=== PATIENT | female | born 1990 | race African-American/Black ===

== ENCOUNTER 2023-08-20 08:40 | Emergency (ER) | payer BC, SELFPAY ==
--- NOTE | 2023-08-20 09:40 | ED.GENMED ---
History of Present Illness
General
Chief Complaint: Anal/Rectal Problem
Time Seen by Provider: 08/20/23 09:17
Travel History
Have you had any contact with someone who has COVID-19?: No
Do you have any symptoms of coronavirus? Fever > 100 degrees, chills, cough, shortness of breath, sore throat, loss of taste or smell, muscle aches, or headache?: No
History of Present Illness
History of Present Illness:
33-year-old previously healthy female presents to the emergency department for evaluation of rectal pain that has been ongoing for the past 4 days. Began after having a large bowel movement. Pain increases with any sitting. Denies any anal
insertive intercourse. Denies any associated fevers or chills. No discharge in the rectum.
Review of Systems
Review of Systems
Allergies reviewed?: Yes
All Other Systems: ROS reviewed and negative except as documented in HPI and ROS
Phy Exam
Physical Exam
Physical Exam:
GEN: Well appearing, NAD, WDWN
HEENT: Oral mucosa moist, no scleral icterus
Cardiac: Regular rate
Lung: No respiratory distress, no tachypnea
Rectal: Exam performed with BUSHRA Lerner at bedside, anoscopy was performed, there are nonthrombosed internal hemorrhoids as well as nonthrombosed external hemorrhoids, no visible anal fissure, no mass
MSK: No gross deformity or injuries
Skin: Good color, no pallor or jaundice, no rashes
Neuro: AO x3, moves all extremities freely
Psych: Calm, cooperative
Course
Orders/Labs/Results
Orders:
Orders
08/20/23 09:30
Ketorolac [Toradol] 15 mg IV NOW STA
08/20/23 10:05
Basic Metabolic Panel Urgent
Complete Blood Count/With Diff Urgent
HCG, Serum Qualitative Screen Urgent
Comment: ADD ON
08/20/23 10:31
CT Pelvis With Iv Contrast Urgent
Comment:
Reason For Exam: rectal pain
08/20/23 10:44
Add On- LAB Urgent
Tests Added?: HCG qual
Abnormal Lab Results
08/20/23
10:05
RBC 4.11 L 10^6/uL
(4.20-5.40)
Hct 35.9 L %
(37.0-47.0)
08/20/23 10:05
08/20/23 10:05
Vital Signs
Initial and Last Documented VS:
Initial Vital Signs
Temp Pulse Resp BP Pulse Ox
98.7 F 92 18 179/103 99
08/20/23 08:57 08/20/23 08:57 08/20/23 08:57 08/20/23 08:57 08/20/23 08:57
Last Documented Vital Signs
Temp Pulse Resp BP Pulse Ox
98.7 F 92 18 179/103 99
08/20/23 08:57 08/20/23 08:57 08/20/23 08:57 08/20/23 08:57 08/20/23 08:57
MDM/Problems Addressed
MDM/Problems Addressed:
Due to the relatively unremarkable rectal exam the patient was sent for CT of the pelvis which showed no abnormal findings. Patient may just have significant pain due to hemorrhoids although no thrombosis was identified on my exam. I saw no
evidence for bleeding to suggest an anal fissure. Will start the patient on Anusol suppositories, outpatient PCP follow-up advised. Discussed supportive care
*Critical Care Note
Total Time (30-74mins, 75-104mins- exclusive of procedures): Not Applicable
ED Attending Note
-
Portions of this chart may have been created with voice recognition software.� Occasional wrong word or��sound alike� substitutions may have occurred due to the inherent limitations of voice recognition software.
Discharge Plan
Departure
Patient Disposition: Home (Routine Discharge)
Date of Disposition: 08/20/23
Time of Disposition: 12:26
Patient with high blood pressure during this ER visit?: No
Discharge Problem:
Pain, rectum
Instructions: Hemorrhoids (DC)
Prescriptions:
New
hydrocortisone acetate [Anusol-HC] 25 mg suppository
25 mg IN HS 7 Days Qty: 12 0RF
Referrals:
PRIVATE,PHYSICIAN [Family Provider] -
Activity Restrictions/Additional Instructions:
Return if symptoms worsen
Interventions
Interventions:
*Risk Screen - Suicide Last Done: 08/20/23 10:14
*General Assessment Last Done: 08/20/23 10:14
*Neglect/Abuse Screening Last Done: 08/20/23 10:14
ED- Fall Risk Assessment Last Done: 08/20/23 10:14
*ED COVID-19 Vaccine History Last Done: 08/20/23 10:14
*Nursing Disposition Last Done: 08/20/23 13:06
DR-Qkeirv-Ygbkyfytvk Assessment Last Done: 08/20/23 10:15
ED-Skin Assessment Last Done: 08/20/23 10:14
Discharge Date and Time
Discharge Date/Time: 08/20/23 13:07
[2023-08-20] MEDS: TORADOL 15 MG IV (10:10)
[2023-08-20 10:21] LABS: % Basophils 0.7 % (0-2); % Eosinophils 1.5 % (0-6); % Immature Granulocytes 0.3 % (0-0.5); % Lymphocytes 33.2 % (20.5-51.1); % Monocytes 6.7 % (1.7-9.3); % Neutrophils 57.6 % (42.2-75.2); Absolute Eosinophils 0.1 10^3/uL (0-0.7); Absolute Monocytes 0.4 10^3/uL (0.1-0.6); Absolute Neutrophils 3.5 10^3/uL (1.4-6.5); Hematocrit 35.9 % (37.0-47.0); Hemoglobin 12.3 g/dL (12.0-16.0); Mean Corp Hgb Conc. 34.3 g/dL (33.0-37.0); Mean Corpuscular Hgb 29.9 pg (27.0-31.0); Mean Corpuscular Volume 87.3 fL (81.0-99.0); Mean Platelet Volume 8.5 fL (7.4-10.4); Nucleated Red Blood Cells % 0 %; Platelet Count 347 10^3/uL (130-400); Red Blood Cell Count 4.11 10^6/uL (4.20-5.40); Red Cell Dist. Width 13.2 % (11.5-14.5); White Blood Cell Count 6.1 10^3/uL (4.8-10.8)
[2023-08-20 10:37] LABS: Blood Urea Nitrogen 7 mg/dl (7-17); Calcium 8.7 mg/dl (8.4-10.2); Carbon Dioxide 27 mmol/L (22-30); Chloride 107 mmol/L (98-107); Glucose 87 mg/dl (70-99); Potassium 4.5 mmol/L (3.5-5.1); Sodium 136 mmol/L (135-145); eGFR > 60.00
[2023-08-20 11:13] LABS: HCG, Serum Qualitative Screen Negative
== END 2023-08-20 13:07 | disposition home or self-care (01) ==
LOC: EMR 08:40
PROVIDERS: Physician Assistant; EMERGENCY PHYSICIAN Emergency Medicine
DX: K62.89 Other specified diseases of anus and rectum (principal)
CPT/HCPCS: 99284; 96374; 72193; 80048; 84703; 85025; Q9967